=== PATIENT | female | born 1995 | race African-American/Black ===

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

== ENCOUNTER 2017-01-22 11:56 | Emergency (ER) | payer OTHER ==
[~2017-01-22] VITALS: Ht 154.9 cm; Wt 52.0 kg
[2017-01-22 11:57] VITALS: BP 117/60; PULSE 104; RESP 15; TEMP 98.1; O2SAT 98
--- NOTE | 2017-01-22 12:09 | PD ---
Physical Exam Time Seen by Provider: 12:06 Narrative 21yo F 7weeks 5 days w/ onset of moderate vag bleeding this morning. Had abd cramping this morning but denies now. Vomited one time thia morning. Denies fever. Patient stable. Patient seen in triage. Awaiting bed placement. Data Data Last Documented VS Vital Signs Date Time Temp Pulse Resp B/P Pulse Ox O2 Delivery O2 Flow Rate FiO2 01/22/17 11:57 98.1 104 15 117/60 98 MDM Supervised Visit with YAMIL: Debo Ro Jan 22, 2017 12:09
--- NOTE | 2017-01-22 12:10 | PD ---
HPI Chief Complaint: Related Problem Time Seen by Provider: 12:10 Travel History International Travel<30 days: No Contact w/Intl Traveler<30days: No Traveled to known affect area: No History of Present Illness HPI 21-year-old female presents to emergency department for evaluation of vaginal bleeding since this morning. Patient states she is 7-1/2 weeks . States that it is a brown red blood. Denies any recent sexual intercourse. States that she did have some abdominal pain and cramping this morning. Denies any current abdominal pain, nausea, or vomiting. 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 She states that there was a heartbeat. She was prescribed that she has not been taking these. Patient states she is in a anonymous sexual relationship. She has no other symptoms reported the same. [facility] Past Medical History Asthma: Yes Diminished Hearing: No ?: LMP: NOVEMBER 2016 : 1 Para: 0 Miscarriage: 1 Social History Alcohol Use: No Tobacco Use: No Substance Use: No Allergies-Medications (Allergen,Severity, Reaction): Coded Allergies: No Known Allergies (Unverified , 01/22/17) Reported Meds & Prescriptions Reported Meds & Active Scripts Active Flagyl (Metronidazole) 250 Mg Tab 250 Mg PO TID 7 Days Flagyl (Metronidazole) 500 Mg Tab 500 Mg PO QID 7 Days Flagyl (Metronidazole) 500 Mg Tab 500 Mg PO BID 7 Days Review of Systems Except as stated in HPI: all other systems reviewed are Neg Physical Exam Narrative GENERAL: Well-nourished female patient, in no acute distress SKIN: Focused skin assessment warm/dry. HEAD: Atraumatic. Normocephalic. EYES: Pupils equal and round. No scleral icterus. No injection or drainage. ENT: No nasal bleeding or discharge. Mucous membranes pink and moist. NECK: Trachea midline. No JVD. CARDIOVASCULAR: Regular rate and rhythm. No murmur appreciated. RESPIRATORY: No accessory muscle use. Clear to auscultation. Breath sounds equal bilaterally. GASTROINTESTINAL: Abdomen soft, non-tender, nondistended. Hepatic and splenic margins not palpable. GENITOURINARY: Normal external genitalia without lesions or erythema. Vaginal vault foul odor and a brown-red discharge.. Cervical os was open approximately a fingertip with brown-red drainage. No cervical motion tenderness. Uterus nontender and nonenlarged. Bilateral adnexa nontender without masses. MUSCULOSKELETAL: No obvious deformities. No clubbing. No cyanosis. No edema. NEUROLOGICAL: Awake and alert. No obvious cranial nerve deficits. Motor grossly within normal limits. Normal speech. PSYCHIATRIC: Appropriate mood and affect; insight and judgment normal. Data Data Last Documented VS Vital Signs Date Time Temp Pulse Resp B/P Pulse Ox O2 Delivery O2 Flow Rate FiO2 01/22/17 15:30 67 18 112/67 98 Room Air 01/22/17 11:57 98.1 Orders Urinalysis - C+S If Indicated (01/22/17 12:11) Ed Urine Pregnancytest Poc (01/22/17 12:11) Wet Prep Profile (01/22/17 12:11) Gc And Chlamydia Pcr (01/22/17 12:11) Beta Hcg (Quant/Titer) (01/22/17 12:44) Complete Rh (01/22/17 12:44) Urine Culture (01/22/17 12:30) Us Pelvis (Ques Preg/Ectopic) (01/22/17 ) Labs Laboratory Tests Test 01/22/17 01/22/17 01/22/17 01/22/17 12:30 12:45 12:50 15:40 Urine Color YELLOW Urine Turbidity HAZY Urine pH 5.5 Urine Specific [place] 1.016 Urine Protein 30 mg/dL Urine Glucose (UA) NEG mg/dL Urine Ketones NEG mg/dL Urine Occult Blood LARGE Urine Nitrite NEG Urine Bilirubin NEG Urine Urobilinogen LESS THAN 2.0 MG/DL Urine Leukocyte Esterase LARGE Urine RBC 2 /hpf Urine WBC 38 /hpf Urine WBC Clumps RARE Urine Squamous Epithelial 21 /hpf Cells Urine Bacteria FEW /hpf Urine Mucus FEW /lpf Microscopic Urinalysis Comment CULTURE INDICATED Chlamydia trachomatis DNA DETECTED (PCR) Neisseria gonorrhoeae DNA DETECTED (PCR) Clue Cells (Wet Prep) PRESENT Vaginal Trichomonas (Wet Prep) NONE SEEN Vaginal Yeast (Wet Prep) NONE SEEN Human Chorionic Gonadotropin, 999306 MIU/ML Quant Blood Type O NEGATIVE Rho(D) Type NEGATIVE Blood Bank Comment MDM Medical Decision Making Medical Screen Exam Complete: Yes Emergency Medical Condition: Yes Medical Record Reviewed: Yes Differential Diagnosis Threatened versus missed versus UTI versus STD Narrative Course 21-year-old female presents to the emergency department for evaluation of vaginal bleeding. Patient appears without distress. She does have a malodorous brown-red vaginal discharge. No CMT. Beta hCG is 111,780. Wet prep is a positive clue cells. GC PCR pending. Laboratory Tests Test 01/22/17 01/22/17 01/22/17 01/22/17 12:30 12:45 12:50 15:40 Urine Color YELLOW Urine Turbidity HAZY Urine pH 5.5 Urine Specific [place] 1.016 Urine Protein 30 mg/dL Urine Glucose (UA) NEG mg/dL Urine Ketones NEG mg/dL Urine Occult Blood LARGE Urine Nitrite NEG Urine Bilirubin NEG Urine Urobilinogen LESS THAN 2.0 MG/DL Urine Leukocyte Esterase LARGE Urine RBC 2 /hpf Urine WBC 38 /hpf Urine WBC Clumps RARE Urine Squamous Epithelial 21 /hpf Cells Urine Bacteria FEW /hpf Urine Mucus FEW /lpf Microscopic Urinalysis Comment CULTURE INDICATED Clue Cells (Wet Prep) PRESENT Vaginal Trichomonas (Wet Prep) NONE SEEN Vaginal Yeast (Wet Prep) NONE SEEN Human Chorionic Gonadotropin, 382241 MIU/ML Quant Blood Type O NEGATIVE Rho(D) Type NEGATIVE Blood Bank Comment Last Impressions Pelvis Ultrasound 01/22/17 0000 Signed Impressions: Service Date/Time: January 14:18 - CONCLUSION: [place] shaped complex probably hypoechoic area adjacent to the gestational sac characteristic of a subchorionic hemorrhage. Intrauterine gestational sac containing a pole and documented heart rate. No evidence of complex adnexal masses. Antonio Sorto MD Patient does have large leukocyte esterase, moderate blood, 38 WBC, rare WBC clumps, few bacteria, few mucus. This is likely due to vaginal discharge contaminated the urine. Discussed the patient my attending physician who recommends giving the patient Flagyl for treatment of BV. GC PCR still pending. We will wait for urine culture to grow to add additional antibiotic. Ultrasound results are discussed with the patient. She is advised pelvic rest. Rh factor is negative. Rhogram is ordered. I went in to discuss this with the patient states that she believes she got this last week in [place]. The patient then tells me that she is currently on Macrobid for UTI. She states she was seen last week on January 13 at a hospital in [place] for vaginal bleeding at which time she was given Rhogam. She had her records with her area and I reviewed these and confirm this. Patient is instructed to follow-up with her bridge opener. She'll be discharged at this time. Diagnosis Primary Impression: Bacterial vaginitis Additional Impressions: Vaginal bleeding Subchorionic hemorrhage Qualified Code: O41.8X10 - Subchorionic hemorrhage, first trimester, not applicable or unspecified fetus Qualified Code: Z3A.08 - 8 weeks gestation of Threatened Rh negative status during in first trimester UTI (urinary tract infection) Qualified Code: N39.0 - Urinary tract infection without hematuria, site unspecified Referrals: Sales Order Administrator Patient Instructions: Bacterial Vaginosis (ED), General Instructions, Subchorionic Hemorrhage (ED), Threatened Miscarriage (ED) Additional Instructions: Pelvic rest. No sexual activity until you are cleared by her bridge opener Follow-up with a primary care provider Seek bridge opener evaluation Avoid heavy lifting, bending, twisting Return immediately to the emergency department with any acute worsening of symptoms Med/Other Pt SpecificInfo: Prescription(s) given Scripts Metronidazole (Flagyl)250 Mg Yho160 Mg PO TID 7 Days Ref 0 Prov:Denise Williamson 01/22/17 Disposition: 01 DISCHARGE HOME Condition: Stable Denise Williamson Jan 22, 2017 12:10
[2017-01-22 13:06] LABS: BACTERIA, URINE FEW /hpf; BLOOD, URINE LARGE (NEG); COMMENT (UR) CULTURE INDICATED; CULTURE IF INDICATED CULTURE INDICATED; GLUCOSE,URINE NEG (NEG); KETONE, URINE NEG (NEG); MUCUS URINE FEW /lpf (OCC); NITRITE,URINE NEG (NEG); PH, URINE 5.5 (5.0-8.5); SQUAMOUS EPITHELIAL CELL URINE 21 /hpf (0-5); URINE COLOR YELLOW (YELLW/STRAW)
[2017-01-22 13:55] LABS: BETA HCG QUANT 111780 MIU/ML (0-5)
--- NOTE | 2017-01-22 15:17 | RADRPT ---
EXAM DATE/TIME: 01/22/2017 14:18 [facility] COMPARISON: No previous studies available for comparison. INDICATIONS : Vaginal bleeding. LAB(S): Beta-hC,780 MEDICAL HISTORY : . Asthma. SURGICAL HISTORY : None. ENCOUNTER: Initial ACUITY: 1 day PAIN SCORE: 1/10 LOCATION: Bilateral pelvis MEASUREMENTS: UTERUS: 8.9 x 6.5 x 6.4 cm ENDOMETRIAL STRIPE: >20 mm RIGHT OVARY: 3.1 x 1.6 x 1.7 cm LEFT OVARY: 2.7 x 1.5 x 1.1 cm FREE FLUID: No CROWN RUMP LENGTH: 1.1 cm = 7 WKS 1 DAYS FHR: 145 BPM FINDINGS: UTERUS: Intrauterine gestational sac containing a pole is noted. Proper measurement is 1.1 cm compatibl e with a gestational age of 7 weeks one day. heart rate 145 beats per minute is documented. A crescent shape complex hypoechoic area is identified adjacent to the gestational sac. It measures 2 .7 x 1.8 x 0.65 cm in size. RIGHT OVARY: Ovary contains no mass or significant cystic lesion. LEFT OVARY: Ovary contains no mass or significant cystic lesion. MISCELLANEOUS: No free fluid. CONCLUSION: [place] shaped complex probably hypoechoic area adjacent to the gestational sac andrew acteristic of a subchorionic hemorrhage. Intrauterine gestational sac containing a pole and documented heart rate. No evidence of complex adnexal masses. Antonio Sorto MD on January 22, 2017 at 15:11 Board Certified Radiologist. This report was verified electronically.
[2017-01-22] MEDS ORDERED: METR250 PO (15:23)
[2017-01-22 15:30] VITALS: BP 112/67; PULSE 67; RESP 18; O2SAT 98
[2017-01-22 16:43] LABS: CHLAMYDIA PCR DETECTED (NOT DETECT); NEISSERIA PCR DETECTED (NOT DETECT)
== END 2017-01-22 16:20 | disposition home or self-care (01) ==
LOC: NEPD 11:56
DX: O41.8X10 Other specified disorders of amniotic fluid and membranes, first trimester, not applicable or unspecified (principal); N76.0 Acute vaginitis; N93.9 Abnormal uterine and vaginal bleeding, unspecified; O20.0 Threatened abortion; O23.41 Unspecified infection of urinary tract in pregnancy, first trimester; Z3A.01 Less than 8 weeks gestation of pregnancy; J45.909 Unspecified asthma, uncomplicated
CPT/HCPCS: 76700; 81001; 84702; 84703; 86901; 87086; 87210; 87491; 87591